=== PATIENT | female | born 1995 | race Caucasian/White ===

== ENCOUNTER 2016-07-26 05:51 | Emergency (ER) | payer BC | END 2016-07-26 08:00 | disposition home or self-care (01) | LOC: ER 05:51 | PROC: 0HQ0XZZ Repair Scalp Skin, External Approach (ICD-10-PCS; principal; 2016-07-26) | DX: S01.01XA Laceration without foreign body of scalp, initial encounter (principal); S91.311A Laceration without foreign body, right foot, initial encounter; S90.32XA Contusion of left foot, initial encounter; Y04.2XXA Assault by strike against or bumped into by another person, initial encounter | CPT/HCPCS: 70450; 72125; 73630-LT; 73630-RT; 99284 ==